=== PATIENT | female | born 1965 | race Caucasian/White ===

== ENCOUNTER 2016-12-05 10:27 | Day surgery (SDC) | payer MEDICARE, MEDICAID ==
[2016-12-05] MEDS ORDERED: PROPOFOL 10 MG/ML VIAL IV ONE (15:13)
[2016-12-05] MEDS ORDERED: LIDOCAINE 2% MDV (20MG/ML) 20ML VIAL IV ONE (15:13)
[2016-12-05] MEDS ORDERED: MIDAZOLAM HCL 2MG/2ML VIAL IV ONE (15:13)
--- NOTE | 2016-12-06 18:30 | Operative Note ---
DATE OF SURGERY: 12/05/2016 OPERATION: COLONOSCOPY to the cecum with cold snare polypectomy and Endoclip placement. INDICATION: Colorectal cancer screening. ANESTHESIA: Intravenous sedation was administered by the department of anesthesiology and included Diprivan titrated to effect. PROCEDURE: Following informed consent from this alert individual including a discussion of the risks and benefits of the procedure and an opportunity for the patient to ask questions, the patient was in the left lateral decubitus position. A digital rectal examination was performed. No abnormalities were noted. Following this, the Olympus [id number] video colonoscope was inserted into the rectum without resistance. The rectal mucosa had a normal appearance with normal folds and distensibility. The colonoscope was advanced up through the bowel to the level of the cecum without much difficulty. Throughout the bowel the mucosa appeared normal, the folds were normal, and the bowel was fairly well distensible. The cecum was defined by noting the appendiceal orifice and ileocecal valve. From the base of the cecum, the colonoscope was then withdrawn back through the bowel, reexamining the mucosa upon withdrawal. In the descending colon there was an 8 mm polyp noted which was removed with cold snare polypectomy. An Endoclip was placed to prevent bleeding. The colonoscope was then further withdrawn. No additional polyps were seen. Retroflexion of the rectum was endoscopically normal. The patient tolerated the procedure well and was returned to the recovery area in stable condition. IMPRESSION: A 7-8 mm polyp in the descending colon removed with cold snare polypectomy. Endoclip was placed to prevent bleeding. RECOMMENDATIONS: to was given instructions following the examination through a person who performed sign language. Further recommendations forthcoming pending results of pathology. Followup will be with Shelia Sales, nurse practitioner. As always, thank you for allowing me to participate in the care of your patient. CC: CHAUNCEY Silveira
== END 2016-12-05 12:34 | disposition home or self-care (01) ==
LOC: HOP 10:27
PROVIDERS: ATTEND Internal Medicine Gastroenterology
DX: Z12.11 Encounter for screening for malignant neoplasm of colon (principal); D12.4 Benign neoplasm of descending colon; E03.9 Hypothyroidism, unspecified; J45.909 Unspecified asthma, uncomplicated

== ENCOUNTER 2017-08-29 13:08 | Emergency (ER) | payer MEDICARE, MEDICAID ==
[2017-08-29] MEDS ORDERED: 0.9 % SODIUM CHLORIDE 1,000 ML BAG IV ONE (13:39)
[2017-08-29] MEDS ORDERED: ONDANSETRON HCL IV 4 MG/2 ML VIAL IV ONE (13:39)
[2017-08-29 14:12] LABS: BASO % 0.1 % (0-6); EOS % 0.7 % (0-6); HEMATOCRIT 48.9 % (35.0-47.0); HEMOGLOBIN 15.8 gm/dl (11.6-16.0); LYMPH % 7.8 % (16-45); MEAN CELL VOLUME 96.1 fl (81-97); MEAN CORPUSCULAR HGB CONC 32.3 g/dl (32-36); MEAN PLATELET VOLUME 10.6 fl (7.4-10.4); MONO % 3.9 % (0-9); PLATELET COUNT 255 K/uL (130-400); RED BLOOD COUNT 5.09 M/uL (3.80-5.40); RED CELL DISTRIBUTION WIDTH 13.7 % (11.5-14.5); URINE APPEARANCE CLEAR; URINE BILIRUBIN NEGATIVE (NEGATIVE); URINE BLOOD TRACE-I (NEGATIVE); URINE COLOR YELLOW; URINE GLUCOSE (UA) NEGATIVE (NEGATIVE); URINE KETONE NEGATIVE (NEGATIVE); URINE LEUKOCYTE ESTERASE NEGATIVE (NEGATIVE); URINE NITRITE NEGATIVE (NEGATIVE); URINE PROTEIN NEGATIVE (NEGATIVE); URINE UROBILINOGEN 0.2 E.U./dL (0.20 - 1.00); WHITE BLOOD COUNT W/O DIFF 9.5 K/uL (4.2-12.2)
[2017-08-29 14:22] LABS: BLOOD UREA NITROGEN 13 mg/dL (6-20); CREATININE 0.8 mg/dL (0.5-0.9); EST GLOMERULAR FILTRATION RATE > 60 mL/min
[2017-08-29 14:25] LABS: GLUCOSE,RANDOM 112 mg/dL (74-109)
[2017-08-29 14:27] LABS: ALB/GLOB RATIO 1.1 (1.1-1.8); ALBUMIN 4.1 g/dL (4.0-5.0); ALKALINE PHOSPHATASE 160 U/L (35-104); ALT/SGPT 23 U/L (<33); AST/SGOT 27 U/L (10.0-35.0); LIPASE 55 U/L (13-60)
--- NOTE | 2017-08-29 14:27 | Emergency Department Record ---
History of Present Illness - General Chief complaint: Vomiting Stated complaint: VOMITING Time Seen by Provider: 08/29/17 13:35 Source: Patient Mode of Arrival: Ambulatory Limitations: No limitations - History of Present Illness Initial comments: pt has ap, n/v/d since middle of night. she has a known hx of gallstones MD complaint: Abdominal pain, Diarrhea, Nausea, Vomiting Onset/Timin -: Hour(s) Description of Vomiting: Bilious, Other Location: Diffuse Radiation: None Improves with: None Worsens with: None Associated Symptoms: Nausea/vomiting - Related Data Allergies Allergy/AdvReac Type Severity Reaction Status Date / Time No Known Allergies Allergy Unverified 05/24/17 08:29 Travel Screening - Travel/Exposure Within Last 30 Days Have you traveled within the last 30 days?: No - Travel/Exposure Within Last Year Have you traveled outside the [place] in the last year?: No - Additonal Travel Details Have you been exposed to anyone with a communicable illness?: No - Travel Symptoms Symptom Screening: None Review of Systems Reviewed: No additional complaints except as noted below Constitutional: Reports: As per HPI. Denies: Chills, Fever, Malaise, Night sweats, Weakness, Weight change Eyes: Reports: As per HPI. Denies: Eye discharge, Eye pain, Photophobia, Vision change ENT: Reports: As per HPI. Denies: Congestion, Dental pain, Ear pain, Epistaxis , Hearing loss, Throat pain Respiratory: Reports: As per HPI. Denies: Cough, Dyspnea, Hemoptysis, Stridor, Wheezes Cardiovascular: Reports: As per HPI. Denies: Arrhythmia, Chest pain, Dyspnea on exertion, Edema, Murmurs, Orthopnea, Palpitations, Paroxysmal nocturnal dyspnea, Rheumatic Fever, Syncope Endocrine: Reports: As per HPI. Denies: Fatigue, Heat or cold intolerance, Polydipsia, Polyuria Gastrointestinal: Reports: As per HPI, Abdominal pain, Diarrhea, Nausea, Vomiting. Denies: Constipation, Hematemesis, Hematochezia, Melena Genitourinary: Reports: As per HPI. Denies: Abnormal menses, Discharge, Dyspareunia, Dysuria, Frequency, Hematuria, Incontinence, Retention, Urgency Musculoskeletal: Reports: As per HPI. Denies: Arthralgia, Back pain, Gout, Joint swelling, Myalgia, Neck pain Skin: Reports: As per HPI. Denies: Bruising, Change in color, Change in hair/ nails, Lesions, Pruritus, Rash Neurological: Reports: As per HPI. Denies: Abnormal gait, Confusion, Headache, Numbness, Paresthesias, Seizure, Tingling, Tremors, Vertigo, Weakness Psychiatric: Reports: As per HPI. Denies: Anxiety, Auditory hallucinations, Depression, Homicidal thoughts, Suicidal thoughts, Visual hallucinations Hematological/Lymphatic: Reports: As per HPI. 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 - GI Hx GI Disorders: No Comment:: c/o occas constipation - Hx Genitourinary Disorders: No Hx Kidney Stones: Yes - ENDOCRINE Hx Endocrine Disorders: Yes - MUSCULOSKELETAL Hx Musculoskeletal Disorders: No Hx Arthritis: Yes (left thumb) - PSYCH Hx Psych Problems: No Hx Anxiety: Yes - HEMATOLOGY/ONCOLOGY Hx Hematology/Oncology Disorders: No Family Medical History Any Significant Family History?: No Hx Diabetes: Father Hx Kidney Disease: Father, Mother Physical Exam - General General Appearance: Alert, Oriented x3, Cooperative, Mild distress Limitations: Language barrier, Other ([place]) - Head Head exam: Normal inspection - Eye Eye exam: Normal appearance, PERRL Pupils: Normal accommodation - ENT ENT exam: Normal exam, Mucous membranes moist, Normal external ear exam, Normal orophraynx, TM's normal bilaterally Ear exam: Normal external inspection. negative: External canal tenderness Nasal Exam: Normal inspection. negative: Discharge, Sinus tenderness Mouth exam: Normal external inspection, Tongue normal Teeth exam: Normal inspection. negative: Dental caries Throat exam: Normal inspection. negative: Tonsillar erythema, Tonsillar exudate - Neck Neck exam: Normal inspection, Full ROM. negative: Tenderness - Respiratory Respiratory exam: Normal lung sounds bilaterally. negative: Respiratory distress - Cardiovascular Cardiovascular Exam: Regular rate, Normal rhythm, Normal heart sounds - GI/Abdominal GI/Abdominal exam: Soft, Normal bowel sounds, Tenderness - Rectal Rectal exam: Deferred - exam: Deferred - Extremities Extremities exam: Normal inspection, Full ROM, Normal capillary refill. negative: Tenderness - Back Back exam: Reports: Normal inspection, Full ROM. Denies: Muscle spasm, Rash noted, Tenderness - Neurological Neurological exam: Alert, CN II-XII intact, Normal gait, Oriented X3 - Psychiatric Psychiatric exam: Normal affect, Normal mood - Skin Skin exam: Dry, Intact, Normal color, Warm Course Vital Signs 08/29/17 13:11 Temperature 97.8 F Pulse Rate 92 H Respiratory 18 Rate Blood Pressure 142/74 Pulse Ox 94 L - Reevaluation(s) Reevaluation #1: 08/29/17 16:44 pt feels better Medical Decision Making - Lab Data Result diagrams: 08/29/17 14:00 08/29/17 14:00 Lab Results 08/29/17 08/29/17 Range/Units 14:00 14:00 WBC 9.5 (4.2-12.2) K/uL RBC 5.09 (3.80-5.40) M/uL Hgb 15.8 (11.6-16.0) gm/dl Hct 48.9 H (35.0-47.0) % MCV 96.1 (81-97) fl MCH 31.0 (27-33) pg MCHC 32.3 (32-36) g/dl RDW 13.7 (11.5-14.5) % Plt Count 255 (130-400) K/uL MPV 10.6 H (7.4-10.4) fl Lymphocytes % 7.8 L (16-45) % Monocytes % 3.9 (0-9) % Eosinophils % 0.7 (0-6) % Basophils % 0.1 (0-6) % Urine Color Yellow Urine Appearance Clear Urine pH 6.0 (5.0-8.0) Ur Specific Mcdade 1.020 (1.002-1.030) Urine Protein Negative (NEGATIVE) Urine Glucose (UA) Negative (NEGATIVE) Urine Ketones Negative (NEGATIVE) Urine Blood Trace-i (NEGATIVE) Urine Nitrite Negative (NEGATIVE) Urine Bilirubin Negative (NEGATIVE) Urine Urobilinogen 0.2 (0.20 - 1.00) E.U./dL Ur Leukocyte Esterase Negative (NEGATIVE) Disposition Disposition: Discharge Clinical Impression: Cholelithiasis and acute cholecystitis without obstruction Disposition: Home, Self-Care Condition: (1) Good Instructions: Biliary Colic (ED), Gallstones (ED) Additional Instructions: follow up with dr hayden. return sooner if worse. low fat diet. Referrals: Amrik Hayden [DOCTOR OF OSTEOPATH] - [facility] [Provider Group] Forms: Patient Portal Access Quality - Quality Measures Quality Measures: N/A - Blood Pressure Screening Does Patient Have Any of the Following: No Blood Pressure Classification: Hypertensive Reading Systolic Measurement: 142 Diastolic Measurement: 74 Screening for High Blood Pressure: < First Hypertensive BP, F/U Documented > [ [id number]] First Hypertensive Follow-up Interventions: Follow-up with rescreen GT 1 day and LT 4 weeks.
[2017-08-29 14:30] LABS: URINE BACTERIA FEW; URINE RBC 0 - 2 (NONE SEEN); URINE SQUAMOUS EPITHELIAL CELL 0 - 2 /hpf; URINE WBC 0 - 2 (0-2/hpf)
[2017-08-29] MEDS ORDERED: ACETAMINOPHEN 500 MG TABLET PO ONE (16:29)
--- NOTE | 2017-08-31 14:41 | ULTRASOUND REPORT ---
EXAM: ULTRASOUND OF THE ABDOMEN COMPLETE HISTORY: RIGHT UPPER QUADRANT ABDOMINAL PAIN. TECHNIQUE: Routine ultrasound examination of the abdomen was performed and is limited by body habitus. Comparison: Abdomen ultrasound dated 10/17/16. FINDINGS: The pancreatic tail is obscured by overlying bowel gas. The remainder of the pancreas is visualized and normal in appearance. The abdominal aorta is without aneurysmal dilatation and the intrahepatic IVC is patent. The liver, to the extent visualized again appears somewhat coarsened in echotexture. This is most commonly seen with steatosis, but can also be seen with hepatitis and cirrhosis. No focal hepatic lesion. No intra nor extrahepatic biliary ductal dilatation with the common hepatic duct measuring 4.8 mm. The gallbladder is contracted around at least two gallstones. There is borderline wall thickening. No pericholecystic fluid. There is a positive sonographic Mera's sign. The spleen is not enlarged with no mass identified. Screening evaluation of the kidneys does not demonstrate gross hydronephrosis. The right kidney measures 9.1 cm in length and the left kidney measures 11.6 cm in length. There are two well circumscribed thin walled anechoic masses with enhanced posterior through transmission within the right kidney. One measures 1.2 x 1.0 x 1.2 cm and the other measures 1.3 x 1.2 x 1.4 cm. These are consistent with simple cysts. IMPRESSION: 1. EXAM LIMITED BY BODY HABITUS. 2. CHOLELITHIASIS IN A SOMEWHAT CONTRACTED GALLBLADDER. BORDERLINE GALLBLADDER WALL THICKENING. 3. POSITIVE SONOGRAPHIC MERA'S SIGN. 4. TWO SIMPLE CYSTS WITHIN THE RIGHT KIDNEY. 5. COARSENED HEPATIC ECHOTEXTURE, DISCUSSED ABOVE. JOB NUMBER: [id number] [facility]
== END 2017-08-29 17:12 | disposition home or self-care (01) ==
LOC: ER 13:08
DX: K80.00 Calculus of gallbladder with acute cholecystitis without obstruction (principal); R19.7 Diarrhea, unspecified; R11.14 Bilious vomiting
CPT/HCPCS: 76700; 80053; 81001; 83690; 85027; 96374; 99284; J2405; J7030

== ENCOUNTER 2017-09-18 08:31 | Day surgery (SDC) | payer MEDICARE, MEDICAID ==
[~2017-09-18 08:31] MED LIST: ACETAMINOPHEN 1,000 MG/100 ML BTL IV ONE; FAMOTIDINE 20MG TABLET PO ONE; MECLIZINE 25 MG TABLET PO ONE; METOCLOPRAMIDE 10 MG TABLET PO ONE
[2017-09-18] MEDS ORDERED: SCOPOLAMINE 1 PATCH TDSY TD ONE (08:32)
[2017-09-18] MEDS ORDERED: BUPIVACAINE 0.25% W/EPI MPF 30ML VIAL IVP ONE (08:32)
[2017-09-18] MEDS ORDERED: HYDROMORPHONE HCL 2 MG/ML VIAL IV ONE (08:32)
--- NOTE | 2017-09-19 12:30 | Operative Note ---
DATE OF SURGERY: 09/18/2017 Surgeon: Amrik Hayden DO PREOPERATIVE DIAGNOSIS: Cholelithiasis with chronic cholecystitis. POSTOPERATIVE DIAGNOSIS: Cholelithiasis with chronic cholecystitis. OPERATION: Laparoscopic cholecystectomy. Indication: The patient is a 52-year-old female who is having ongoing right subcostal postprandial pain. Imaging studies did reveal cholelithiasis with a clinical history of recurrent biliary colic. We did discuss cholecystectomy versus medical management. She desired surgical intervention. Risks include but are not limited to bleeding, infection, ductal injury, possible conversion to open, postoperative bile leak. She understood this fully. PROCEDURE: Thereafter, consent was signed and questions answered. She was taken to the operating room and placed in a supine position. General anesthesia was administered per the department of anesthesia. The patient's abdomen was prepped and draped in the usual sterile fashion. The infraumbilical region was anesthetized with a total of 2 mL of 0.25% Sensorcaine with epinephrine. A 2 cm infraumbilical incision was made. This was carried down to the anterior rectus fascia. There was some scarring encountered secondary to the prior laparoscopy. At this time, the anterior rectus sheath was identified. This was incised. Anne clamps were placed on the fascial edges and brought up into the wound. Stay sutures of 0 Vicryl were placed. Posterior rectus sheath was identified and incised. The peritoneal cavity was entered bluntly. At this time, a 10 mm blunt Roberto Carlos port was placed. Adequate pneumoperitoneum was established. Under direct visualization, additional 5 mm epigastric and two 5 mm right subcostal ports were placed. The gallbladder was identified in the subhepatic space. This was noted to be thickened and inflamed, edematous as well. Due to the patient's body habitus, I did have to switch to a 10 mm angled lens to optimize our visualization. The gallbladder was retracted in a cephalad and lateral direction opening up the angle of Calot. The hepatocystic triangle was thoroughly dissected out. There was no aberrant anatomy, no posterior ductal structures. The cystic duct and cystic artery were clearly identified. The distal half of the gallbladder was released from the cystic plate elongating our retroductal window. The cystic artery was taken down with the Kyle harmonic. Cystic duct was triply clipped and cut in a standard fashion. Gallbladder was then taken off the liver bed with Kyle harmonic. This was extracted through the umbilical port. The patient did have large stones noted, and this had to be stretched a bit. Right upper quadrant was then rechecked and found to be hemostatic. No bleeding. No bile leak. No bowel injury noted. The patient was leveled out. The pneumoperitoneum was released. All ports were removed. The fascia was closed with 0 Vicryl in a [id number] fashion. The skin at all ports was closed with 4-0 Vicryl. The patient was taken to the recovery room in satisfactory condition. FINDINGS AT THE TIME OF SURGERY: Acute on chronic cholecystitis. CC: CHAUNCEY Morales
== END 2017-09-18 13:50 | disposition home or self-care (01) ==
LOC: SUR 08:31
PROVIDERS: ATTEND Surgery
DX: K80.10 Calculus of gallbladder with chronic cholecystitis without obstruction (principal); J44.9 Chronic obstructive pulmonary disease, unspecified
CPT/HCPCS: 47562; 00790; J1170; C1776